=== PATIENT | female | born 1980 | race Hispanic/Latino ===

== ENCOUNTER 2017-08-27 19:12 | Inpatient (IN) | payer OTHER, SELFPAY ==
[2017-08-27 20:21] VITALS: BMI 43.3
[2017-08-27] MEDS: Lactated Ringers 1,000 ML 50 ML IV (20:25)
[2017-08-27 20:44] LABS: Hematocrit 31.8 % (37-47); Hemoglobin 10.4 g/dl (12.0-15.0); Mean Corp Hgb Conc 32.7 g/gl (32-36); Mean Corpuscular Hgb 28.8 pg (27.0-32.0); Mean Corpuscular Volume 88.1 fL (81-99); Mean Platelet Vol. 10.4 fl (6.2-12.0); Platelet Count 235 K/mm3 (150-450); RBC Distribution Width CV 15.6 % (11.6-14.6); RBC Distribution Width SD 48.7 fl (35.1-43.9); Red Blood Count 3.61 M/mm3 (4.2-5.4); White Blood Count 10.1 K/mm3 (4.4-11.0)
[2017-08-27 20:45] LABS: Scan Indicated on CBC? Y/N NO
[2017-08-27] MEDS: Oxytocin 30 units/NS 500 ml 30 UNITS/500 ML IV.SOLN IV (21:10)
--- NOTE | 2017-08-27 21:19 | PCM.HP.OB ---
History Date of Admission: 07/30/13 Final DAMIEN: 08/22/17 Final DAMIEN Source: US <20 weeks Gestational age: 40 Weeks and 5 Days History of this : 36-year-old 5 para 2021 female at 40 and sevenths weeks gestation with EDC of 08/22/17 by 9 week ultrasound alone presents today for induction of labor due to advanced maternal age. She has a previous history of one years low transverse section and one successful vaginal after section. Current has been uncomplicated to date other than advanced maternal age. Obstetrical history: 2 previous spontaneous miscarriages, 141 week , 141 week spontaneous vaginal delivery after section Pertinent Past Medical History: Post ablation hypothyroidism, exercise-induced asthma, to anemia Past surgical history: [place] tooth extraction Family medical history noncontributory Allergies No Known Allergies Allergy (Verified 08/27/17 20:23) Current Medications Acetaminophen (Tylenol) 325 - 650 mg PO Q4H PRN PRN PRN Reason: PAIN OR FEVER >100.4F Al Hydroxide/Mg Hydroxide (Mylanta Ii) 15 - 30 ml PO Q4H PRN PRN PRN Reason: INDIGESTION Citric Acid/Sodium Citrate (Bicitra) 30 ml PO UD PRN Oxytocin/Sodium Chloride () 30 units in 500 mls @ 1 mls/hr IV .Q500H [facility] Last Admin: 08/27/17 21:10 Dose: 1 mls/hr Lactated Ringer's () 1,000 mls @ 50 mls/hr IV .Q20H [facility] Last Admin: 08/27/17 20:25 Dose: 50 mls/hr Nalbuphine HCl (Nubain) 5 - 10 mg IV Q3H PRN PRN PRN Reason: PAIN (4-10/10) Ondansetron HCl (Zofran) 4 mg IV Q8H PRN PRN PRN Reason: NAUSEA Promethazine HCl (Phenergan) 6.25 - 12.5 mg IV Q4H PRN PRN; Protocol PRN Reason: IF NAUSEA PERSISTS Sodium Chloride () 5 - 15 ml IV UD [facility] Last Admin: 08/27/17 21:16 Dose: Not Given Smoking Status: Former smoker - 2000 quit Alcohol: None Number of Fetus(es): 1 Review of Systems Constitutional: Denies: Chills, Fever Eyes: Denies: Blurred vision Cardiovascular: Denies: Chest Pain Respiratory: Denies: Cough Skin: Denies: Rash Physical Exam General: Alert, Cooperative, No apparent distress Cardiovascular: Regular rate Lungs: Normal air movement Abdomen: Soft, Gravid Estimated gestational size: Appropriate for gestational size Presentation: Cephalic Cervix Dilation (cm): 3 Station: -2 Effacement (%): 70 Assessment/Plan FHTs categor 1 a/p 36-year-old 5 para 2021 at 40-5/7 weeks gestation for induction of labor due to advanced maternal age with favorable cervix. Benefits and alternatives to trial of labor after section and induction of labor been discussed with patient her questions were answered to her satisfaction, consent was signed, and she desires to proceed. We will proceed with Pitocin induction of labor. Artificial rupture of membranes and placement of internal tears as needed. Patient plans epidural. EFW is less than 4500 g and pelvis clinically adequate to expect vaginal delivery.
--- NOTE | 2017-08-27 21:25 | HP.PCM_ITS ---
History Date of Admission: 07/30/13 Final DAMIEN: 08/22/17 Final DAMIEN Source: US <20 weeks Gestational age: 40 Weeks and 5 Days History of this : 36-year-old 5 para 2021 female at 40 and sevenths weeks gestation with EDC of 08/22/17 by 9 week ultrasound alone presents today for induction of labor due to advanced maternal age. She has a previous history of one years low transverse section and one successful vaginal after section. Current has been uncomplicated to date other than advanced maternal age. Obstetrical history: 2 previous spontaneous miscarriages, 141 week , 141 week spontaneous vaginal delivery after section Pertinent Past Medical History: Post ablation hypothyroidism, exercise-induced asthma, to anemia Past surgical history: [place] tooth extraction Family medical history noncontributory Allergies No Known Allergies Allergy (Verified 08/27/17 20:23) Current Medications Acetaminophen (Tylenol) 325 - 650 mg PO Q4H PRN PRN PRN Reason: PAIN OR FEVER >100.4F Al Hydroxide/Mg Hydroxide (Mylanta Ii) 15 - 30 ml PO Q4H PRN PRN PRN Reason: INDIGESTION Citric Acid/Sodium Citrate (Bicitra) 30 ml PO UD PRN Oxytocin/Sodium Chloride () 30 units in 500 mls @ 1 mls/hr IV .Q500H [facility] Last Admin: 08/27/17 21:10 Dose: 1 mls/hr Lactated Ringer's () 1,000 mls @ 50 mls/hr IV .Q20H [facility] Last Admin: 08/27/17 20:25 Dose: 50 mls/hr Nalbuphine HCl (Nubain) 5 - 10 mg IV Q3H PRN PRN PRN Reason: PAIN (4-10/10) Ondansetron HCl (Zofran) 4 mg IV Q8H PRN PRN PRN Reason: NAUSEA Promethazine HCl (Phenergan) 6.25 - 12.5 mg IV Q4H PRN PRN; Protocol PRN Reason: IF NAUSEA PERSISTS Sodium Chloride () 5 - 15 ml IV UD [facility] Last Admin: 08/27/17 21:16 Dose: Not Given Smoking Status: Former smoker - 2000 quit Alcohol: None Number of Fetus(es): 1 Review of Systems Constitutional: Denies: Chills, Fever Eyes: Denies: Blurred vision Cardiovascular: Denies: Chest Pain Respiratory: Denies: Cough Skin: Denies: Rash Physical Exam General: Alert, Cooperative, No apparent distress Cardiovascular: Regular rate Lungs: Normal air movement Abdomen: Soft, Gravid Estimated gestational size: Appropriate for gestational size Presentation: Cephalic Cervix Dilation (cm): 3 Station: -2 Effacement (%): 70 Assessment/Plan FHTs categor 1 a/p 36-year-old 5 para 2021 at 40-5/7 weeks gestation for induction of labor due to advanced maternal age with favorable cervix. Benefits and alternatives to trial of labor after section and induction of labor been discussed with patient her questions were answered to her satisfaction, consent was signed, and she desires to proceed. We will proceed with Pitocin induction of labor. Artificial rupture of membranes and placement of internal tears as needed. Patient plans epidural. EFW is less than 4500 g and pelvis clinically adequate to expect vaginal delivery.
[2017-08-27] MEDS: fentaNYL-bupivacaine (epidural) 100 ML BAG EPIDURAL (23:37)
[2017-08-28] MEDS: Lactated Ringers 1,000 ML 50 ML IV (00:05)
[2017-08-28] MEDS: Oxytocin 30 units/NS 500 ml 30 UNITS/500 ML IV.SOLN 334 UNITS IV (01:08)
[2017-08-28] MEDS: Methylergonovine 0.2 MG/ML Ampul IM (01:18)
[2017-08-28] MEDS: Oxytocin 30 units/NS 500 ml 30 UNITS/500 ML IV.SOLN 167 UNITS IV (01:39)
--- NOTE | 2017-08-28 01:53 | PCM.OB.VAG ---
Vaginal Delivery Maternal Presentation: Medically Indicated Induction Method of Induction: Pitocin, Amniotomy Medical Reason for Induction: - - advanced maternal age Amniotic Membrane Rupture Type: Artificial Amniotic Fluid Description: Lightly stained meconium Final DAMIEN: 08/22/17 Final DAMIEN Source: US <20 weeks Gestational age: 40 Weeks and 6 Days Date of Procedure: 08/28/17 Pre-Operative Diagnosis: labor Post-Operative Diagnosis: same Surgery/ Procedure Performed: Spontaneous Vaginal Delivery Type of Anesthesia: Epidural Description of Procedure: A vigorous male infant was delivered SINCERE over a second-degree perineal laceration. A loose nuchal cord ?1 was easily reduced. The remainder the was delivered with maternal pushing and gentle traction only in less than 15 seconds. The Pitocin infusion was initiated for active management of the third stage. The cord was clamped and cut after 1 minute. The was attended to by the waiting nursing staff. The placenta was delivered spontaneously and intact. The cervix and vagina were intact. The uterus was explored and the incision was intact. The second-degree perineal laceration was repaired with 3-0 Vicryl suture in a running standard fashion. Sponge and needle counts were correct. A vaginal sweep was completed by me. Presentation: SINCERE Placental Delivery Description: Spontaneous Placenta Disposition: [facility] Cord Vessel Description: 3 Vessels Nuchal Cord Compression: Without compression Cord Entanglement: Around neck x 1, loose Drain: - - none Estimated Blood Loss: 500 A gender: Male Episiotomy Description: None Laceration: 2nd degree - perineal Medications given after delivery: IV Pitocin Complications: None
[2017-08-28] MEDS: Naproxen 250 MG Tablet PO ×2 (02:16→12:39)
[2017-08-28] MEDS: 0.9% Saline Lock 10 ML Syringe IV (02:40)
[2017-08-28 03:30] VITALS: BP 97/50; PULSE 78; RESP 16; TEMP 36.6
[2017-08-28] MEDS: Levothyroxine 137 MCG Tablet PO (06:25)
[2017-08-28] MEDS: Acetaminophen 500 MG Tablet 1000 MG PO ×2 (08:23→16:47)
[2017-08-28 08:28] VITALS: BP 109/56; PULSE 72; RESP 18; TEMP 36.6
[2017-08-28 11:24] VITALS: BP 106/61; PULSE 96; RESP 18; TEMP 36.3
[2017-08-28] MEDS: Senna/Docusate Sodium 1 Tablet PO (14:33)
[2017-08-28 16:09] VITALS: BP 105/66; PULSE 96; RESP 15; TEMP 36.1
[2017-08-28 20:13] VITALS: BP 112/72; PULSE 78; RESP 18; TEMP 36.3
[2017-08-29 01:00] VITALS: BP 135/70; PULSE 70; RESP 16; TEMP 36.2
[2017-08-29] MEDS: Naproxen 250 MG Tablet PO ×2 (03:19→12:05)
[2017-08-29] MEDS: Levothyroxine 137 MCG Tablet PO (05:48)
[2017-08-29] MEDS: Acetaminophen 500 MG Tablet 1000 MG PO ×2 (08:07→16:07)
[2017-08-29] MEDS: Dibucaine 30 GM Tube 1 APPLIC TOPICAL (08:08)
[2017-08-29] MEDS: Senna/Docusate Sodium 1 Tablet PO (08:13)
[2017-08-29 08:22] VITALS: BP 109/60; PULSE 70; RESP 18; TEMP 36.3
--- NOTE | 2017-08-29 08:32 | PCM.PN.OB ---
Subjective: Pain well controlled, average lochia. No N/V. Some cramping - Physical Exam General: Alert, Cooperative, No apparent distress Extremities: Edema - 2+ Vital Signs Temp Pulse Resp BP 97.3 F L 70 18 109/60 08/29/17 08:22 08/29/17 08:22 08/29/17 08:22 08/29/17 08:22 Oxygen Delivery Method Room Air Weight: 125.5 kg Body Mass Index (BMI) 43.3 Intake and Output for Last 24 Hours 08/27/17 08/28/17 08/29/17 23:59 23:59 23:59 Output Total 900 / 900 Balance -900 / -900 Medical Necessity - Tobacco Use Smoking Status: Former smoker - 2000 quit Assessment/Plan PPD#1 doing well
--- NOTE | 2017-08-29 09:23 | DCINST_ITS ---
Discharge Diet: No Restrictions Discharge Activity: Return to Normal Activity, May not drive while taking narcotic pain medications., May Shower May resume sexual activity in: 4-6 weeks Additional Activity Instructions:: Nothing in the vagina for 4-6 weeks. You may return to work/school in 6 weeks. Call your doctor if your incision/area has: Continuous Slow Oozing, Sudden Increased Bleeding, Increased Pain/ Swelling, Increased Redness, Foul Smelling Discharge Additional Instructions: If you experience any of the following, contact your healthcare provider. * Bleeding that soaks a pad every hour for 2 hours * Fever 100.4 or higher * Unrelieved incision or abdominal pain * Swelling, redness, discharge or bleeding from your incision or episiotomy site * Your incision begins to separate * Problems urinating (including inability to urinate or burning while urinating) . * Visual changes * Severe headache * Flu-like symptoms * Pain or redness in one of both of your breasts * Pain, warmth, tenderness or swelling in your legs, especially the calf area * Frequent nausea and vomiting * Symptoms of depression or anxiety If you experience any of the following, call 911 or go to the nearest Emergency Room. * Chest pain * Problems breathing * Seizure activity * Partial or complete paralysis of a body part, slurred speech, weakness or drooping of the face, or a sudden inability to walk or hold your balance Allergies/Adverse Reactions: Allergies No Known Allergies Allergy (Verified 08/27/17 20:23) Medications to take at Discharge Levothyroxine [Synthroid] 137 mcg PO MOWETH 07/20/13 Vits [Prenatabs FA ] 1 tablet PO DAILY 07/20/13 Levothyroxine [Synthroid] 100 mcg PO 08/27/17 Ibuprofen [Motrin] 600 mg PO Q6H PRN #60 tab 08/29/17 The following prescriptions were given: Ibuprofen [Motrin] 600 mg PO Q6H PRN #60 tab PRN Reason: Pain Please Follow Up With: Kimberly Hassan MD - [phone] When: Call to make an appointment with your doctor in 6 weeks. If you had elevated Blood Pressure or 4th degree laceration you will need to be seen in 2 weeks. Primary Care Physician: Jeana Carter MD [Primary Care Provider] -
[2017-08-29 14:00] VITALS: BP 108/68; PULSE 78; RESP 16; TEMP 36.4
[2017-08-29 19:39] VITALS: BP 117/60; PULSE 81; RESP 18; TEMP 36.6; O2SAT 97
== END 2017-08-29 19:50 | disposition home or self-care (01) | DRG 775 ==
PROVIDERS: Admitting Provider Obstetrics & Gynecology; Visit Provider Obstetrics & Gynecology
DX: O34.211 Maternal care for low transverse scar from previous cesarean delivery (principal); Z68.41 Body mass index [BMI] 40.0-44.9, adult; O77.0 Labor and delivery complicated by meconium in amniotic fluid; O70.1 Second degree perineal laceration during delivery; O69.81X0 Labor and delivery complicated by cord around neck, without compression, not applicable or unspecified; O99.284 Endocrine, nutritional and metabolic diseases complicating childbirth; E03.9 Hypothyroidism, unspecified; O99.214 Obesity complicating childbirth; E66.01 Morbid (severe) obesity due to excess calories; J45.990 Exercise induced bronchospasm; Z79.899 Other long term (current) drug therapy; Z87.891 Personal history of nicotine dependence; Z3A.40 40 weeks gestation of pregnancy; Z37.0 Single live birth
CPT/HCPCS: 59025; 59050; 85027; 86850; 86900; 99218; J7120; A4216; G0378; J3490